=== PATIENT | male | born 1975 | race Caucasian/White ===

== ENCOUNTER 2017-02-06 08:12 | Emergency (ER) | payer OTHER ==
[~2017-02-06] VITALS: Ht 167.6 cm; Wt 58.1 kg
[~2017-02-06 08:12] MED LIST: BENZ2TAB58 PO; DIVA500T35 PO; OLAN5TAB2 PO; RISP2 PO; ZIPR20CA2 PO
[2017-02-06] MEDS ORDERED: HALO5I IM (08:41)
[2017-02-06] MEDS ORDERED: FLUP5 PO (08:41)
[2017-02-06 09:10] LABS: BASOPHILS % (AUTO) 0.5 % (0.0-2.0); HEMATOCRIT 43.4 % (41-53); HEMOGLOBIN 14.5 g/dL (13.5-17.5); LYMPHOCYTES % (AUTO) 25.5 % (22.0-44.0); MEAN CORPUSCULAR HEMOGLOBIN 30.2 pg (26.0-34.0); MEAN CORPUSCULAR HGB CONC 33.5 G/dL (31.0-37.0); MEAN CORPUSCULAR VOLUME 90 fL (80-100); MONOCYTES # (AUTO) 0.4 K/uL (0.1-1.0); MONOCYTES % (AUTO) 10.8 % (2.0-9.0); NEUTROPHILS # (AUTO) 2.4 K/uL (1.8-7.7); NEUTROPHILS % (AUTO) 62.2 % (40.0-70.0); PLATELET COUNT (AUTO) 201 K/uL (150-450); RED CELL DISTRIBUTION WIDTH 13.9 % (11.5-14.5); WHITE BLOOD COUNT (AUTO) 3.9 K/uL (4.5-11.0)
[2017-02-06] MEDS ORDERED: PERTUSS(ACELL),DIPH,TET VAC/PF 0.5 ML VIAL IM ONE (09:30)
[2017-02-06 09:34] LABS: ANION GAP 9 mmol/L (8-16); CALCIUM, TOTAL 8.2 mg/dL (8.8-10.5); CARBON DIOXIDE 29 mmol/L (22-29); CHLORIDE 100 mmol/L (98-107); CREATININE 0.77 mg/dL (0.60-1.30); GLOMERULAR FILTR. RATE CALC > 60 mL/min (>60); POTASSIUM 3.1 mmol/L (3.5-5.1); SODIUM SERUM 138 mmol/L (136-145); UREA NITROGEN, BLOOD 7 mg/dL (7-18)
[2017-02-06 09:40] LABS: ALANINE AMINOTRANSFERASE 19 U/L (12-78); ALBUMIN 3.4 g/dL (3.4-5.0); ASPARTATE AMINOTRANSFERASE 15 U/L (15-37); BILIRUBIN,TOTAL 0.1 mg/dL (0.1-1.0); TOTAL PROTEIN, SERUM 6.7 g/dL (6.4-8.2)
[2017-02-06 10:32] VITALS: BP 137/89
== END 2017-02-06 10:40 | disposition home or self-care (01) ==
LOC: EMS 08:14
DX: S01.112A Laceration without foreign body of left eyelid and periocular area, initial encounter (principal); F20.9 Schizophrenia, unspecified; F41.9 Anxiety disorder, unspecified; F17.210 Nicotine dependence, cigarettes, uncomplicated; X58.XXXA Exposure to other specified factors, initial encounter; Y93.89 Activity, other specified; Y92.89 Other specified places as the place of occurrence of the external cause; Y99.8 Other external cause status
CPT/HCPCS: 36415; 80053; 85025; 90471; 90715; 99285; G0480

== ENCOUNTER 2017-07-30 11:47 | Emergency (ER) | payer OTHER ==
[~2017-07-30] VITALS: Ht 167.6 cm; Wt 61.4 kg
[~2017-07-30 11:47] MED LIST changes: +FLUP5 PO; +HALO5I IM; -OLAN5TAB2 PO; -RISP2 PO; -ZIPR20CA2 PO
[2017-07-30 14:34] VITALS: BP 143/92
== END 2017-07-30 15:59 | disposition home or self-care (01) ==
LOC: EMS 11:48
DX: Z76.0 Encounter for issue of repeat prescription (principal); F20.9 Schizophrenia, unspecified; R25.1 Tremor, unspecified; F41.9 Anxiety disorder, unspecified; F17.210 Nicotine dependence, cigarettes, uncomplicated
CPT/HCPCS: 99283

== ENCOUNTER 2017-08-27 12:37 | Emergency (ER) | payer OTHER ==
[~2017-08-27] VITALS: Ht 167.6 cm; Wt 61.0 kg
[2017-08-27 13:22] VITALS: BP 146/99
[2017-08-27] MEDS ORDERED: DIVALPROEX SODIUM 250 MG DR TABLET PO ONE (14:00)
[2017-08-27] MEDS ORDERED: BENZTROPINE MESYLATE 2 MG TABLET PO ONE (14:00)
== END 2017-08-27 14:04 | disposition home or self-care (01) ==
LOC: EMS 12:37
DX: Z76.0 Encounter for issue of repeat prescription (principal); F17.210 Nicotine dependence, cigarettes, uncomplicated
CPT/HCPCS: 99283

== ENCOUNTER 2020-01-06 16:24 | Emergency (ER) | payer OTHER ==
[~2020-01-06] VITALS: Ht 167.6 cm; Wt 59.1 kg
[~2020-01-06 16:24] MED LIST changes: +DIVA-78 PO; -DIVA500T35 PO
[2020-01-06] MEDS ORDERED: HALOPERIDOL LACTATE 5 MG/ML VIAL IM ONE (16:30)
[2020-01-06] MEDS ORDERED: DiphenhydrAMINE HCL 50 MG/ML VIAL IM ONE (16:30)
[2020-01-06] MEDS ORDERED: LORazepam 2 MG/ML VIAL IM ONE (16:30)
[2020-01-06 17:55] LABS: BASOPHILS % (AUTO) 0.4 % (0.0-2.0); EOSINOPHILS % (AUTO) 0.7 % (1.0-6.0); HEMATOCRIT 32.1 % (41-53); HEMOGLOBIN 10.9 g/dL (13.5-17.5); MEAN CORPUSCULAR HEMOGLOBIN 31.7 pg (26.0-34.0); MEAN CORPUSCULAR HGB CONC 34.1 G/dL (31.0-37.0); MEAN CORPUSCULAR VOLUME 93 fL (80-100); MONOCYTES # (AUTO) 0.7 K/uL (0.1-1.0); MONOCYTES % (AUTO) 9.8 % (2.0-9.0); NEUTROPHILS # (AUTO) 5.1 K/uL (1.8-7.7); NEUTROPHILS % (AUTO) 74.1 % (40.0-70.0); PLATELET COUNT (AUTO) 248 K/uL (150-450); RED BLOOD CELL COUNT(AUTO) 3.45 MIL/uL (4.50-5.90); RED CELL DISTRIBUTION WIDTH 13.8 % (11.5-14.5)
[2020-01-06 18:09] LABS: ANION GAP 8 mmol/L (8-16); CALCIUM, TOTAL 8.6 mg/dL (8.8-10.5); CARBON DIOXIDE 27 mmol/L (22-29); CHLORIDE 101 mmol/L (98-107); GLOMERULAR FILTR. RATE CALC > 60 mL/min (>60); GLUCOSE,RANDOM 95 mg/dL (70-110); POTASSIUM 3.8 mmol/L (3.5-5.1); SODIUM SERUM 136 mmol/L (136-145); UREA NITROGEN, BLOOD 8 mg/dL (7-18)
[2020-01-06 18:14] LABS: ALANINE AMINOTRANSFERASE 20 U/L (12-78); ALBUMIN 3.3 g/dL (3.4-5.0); ALKALINE PHOSPHATASE 51 U/L (46-116); ASPARTATE AMINOTRANSFERASE 19 U/L (15-37); BILIRUBIN,TOTAL 0.2 mg/dL (0.1-1.0); TOTAL PROTEIN, SERUM 6.8 g/dL (6.4-8.2)
[2020-01-06 18:50] LABS: AMPHET/METH SCREEN,URINE POSITIVE (NEGATIVE); BARBITURATE SCREEN, URINE NEGATIVE (NEGATIVE); BENZODIAZEPINES SCREEN,URINE NEGATIVE (NEGATIVE); CANNABINOID SCREEN,URINE NEGATIVE (NEGATIVE); COCAINE SCREEN,URINE NEGATIVE (NEGATIVE); METHADONE SCREEN, URINE NEGATIVE (NEGATIVE); OPIATE SCREEN,URINE NEGATIVE (NEGATIVE)
[2020-01-06 18:55] LABS: PHENCYCLIDINE SCREEN,URINE NEGATIVE (NEGATIVE)
[2020-01-06 20:42] VITALS: BP 115/78
== END 2020-01-06 20:42 | disposition home or self-care (01) ==
LOC: EDBD → MERGE 16:24 → EMS 16:24
DX: S80.212A Abrasion, left knee, initial encounter (principal); S00.81XA Abrasion of other part of head, initial encounter; F20.0 Paranoid schizophrenia; F15.90 Other stimulant use, unspecified, uncomplicated; H91.3 Deaf nonspeaking, not elsewhere classified; X83.8XXA Intentional self-harm by other specified means, initial encounter; Y93.89 Activity, other specified; Y92.89 Other specified places as the place of occurrence of the external cause; Y99.8 Other external cause status
CPT/HCPCS: 36415; 80053; 80307; 85025; 96372; 99285; G0480; J1200; J1630; J2060

== ENCOUNTER 2020-03-30 18:51 | Inpatient (IN) | payer MEDICAID, OTHER ==
[~2020-03-30] VITALS: Ht 172.7 cm; Wt 57.2 kg
[~2020-03-30 18:51] MED LIST changes: +DIVA-112 PO; -DIVA-78 PO
[2020-03-30 23:17] LABS: ANION GAP 5 mmol/L (8-16); CALCIUM, TOTAL 8.9 mg/dL (8.8-10.5); CARBON DIOXIDE 32 mmol/L (22-29); CHLORIDE 101 mmol/L (98-107); CREATININE 0.78 mg/dL (0.60-1.30); GLOMERULAR FILTR. RATE CALC > 60 mL/min (>60); GLUCOSE,RANDOM 90 mg/dL (70-110); POTASSIUM 4.1 mmol/L (3.5-5.1); SODIUM SERUM 138 mmol/L (136-145); UREA NITROGEN, BLOOD 8 mg/dL (7-18)
[2020-03-30 23:21] LABS: BASOPHILS % (AUTO) 0.5 % (0.0-2.0); EOSINOPHILS % (AUTO) 5.2 % (1.0-6.0); HEMATOCRIT 37.1 % (41-53); HEMOGLOBIN 12.6 g/dL (13.5-17.5); MEAN CORPUSCULAR HEMOGLOBIN 31.6 pg (26.0-34.0); MEAN CORPUSCULAR VOLUME 93 fL (80-100); MONOCYTES # (AUTO) 0.6 K/uL (0.1-1.0); MONOCYTES % (AUTO) 10.6 % (2.0-9.0); NEUTROPHILS # (AUTO) 2.6 K/uL (1.8-7.7); NEUTROPHILS % (AUTO) 47.7 % (40.0-70.0); PLATELET COUNT (AUTO) 287 K/uL (150-450); RED BLOOD CELL COUNT(AUTO) 3.99 MIL/uL (4.50-5.90); RED CELL DISTRIBUTION WIDTH 13.4 % (11.5-14.5)
[2020-03-30 23:41] LABS: ALANINE AMINOTRANSFERASE 17 U/L (12-78); ALBUMIN 3.8 g/dL (3.4-5.0); ALKALINE PHOSPHATASE 65 U/L (46-116); ASPARTATE AMINOTRANSFERASE 13 U/L (15-37); BILIRUBIN,TOTAL 0.2 mg/dL (0.1-1.0); TOTAL PROTEIN, SERUM 7.4 g/dL (6.4-8.2)
[2020-03-30 23:51] LABS: AMPHET/METH SCREEN,URINE POSITIVE (NEGATIVE); BARBITURATE SCREEN, URINE NEGATIVE (NEGATIVE); BENZODIAZEPINES SCREEN,URINE NEGATIVE (NEGATIVE); CANNABINOID SCREEN,URINE NEGATIVE (NEGATIVE); COCAINE SCREEN,URINE NEGATIVE (NEGATIVE); METHADONE SCREEN, URINE NEGATIVE (NEGATIVE); OPIATE SCREEN,URINE NEGATIVE (NEGATIVE)
[2020-03-30 23:53] LABS: PHENCYCLIDINE SCREEN,URINE NEGATIVE (NEGATIVE)
[2020-03-31] VITALS (8 sets, daily range): BP systolic 116–141; BP diastolic 68–85
[2020-03-31] MEDS ORDERED: ZOLPIDEM TARTRATE 10 MG TABLET PO PRN (04:15)
[2020-03-31] MEDS ORDERED: LORazepam 2 MG TABLET PO PRN (04:15)
[2020-03-31] MEDS ORDERED: OLANZapine 5 MG RAPDIS TABLET PO PRN (04:15)
[2020-03-31] MEDS ORDERED: TUBERCULIN, PURIFIED PROTEIN DERIVATIVE 5 TU/0.1 ML SYRINGE ID ONE (18:45)
[2020-03-31] MEDS ORDERED: MAG HYDROX/AL HYDROX/SIMETH ES 30 ML SUSPENSION UDCUP PO PRN (18:45)
[2020-03-31] MEDS ORDERED: PALIPERIDONE PALMITATE 234 MG/1.5 ML SYRINGE IM ONE (18:45)
[2020-03-31] MEDS ORDERED: HydrOXYzine PAMOATE 50 MG CAPSULE PO PRN (18:45)
[2020-03-31] MEDS ORDERED: PROMETHAZINE HCL 25 MG TABLET PO PRN (18:45)
[2020-03-31] MEDS ORDERED: MAGNESIUM HYDROXIDE SUSPENSION 30 ML UDCUP PO PRN (18:45)
[2020-03-31] MEDS ORDERED: LOPERAMIDE HCL 2 MG CAPSULE PO PRN (18:45)
[2020-03-31] MEDS ORDERED: GuaiFENesin/D-METHORPHAN [SUGAR-FREE] 200-20MG/10 ML SYRUP UDCUP PO PRN (18:45)
[2020-03-31] MEDS ORDERED: PALIPERIDONE 1.5 MG ER TABLET PO PRN (18:45)
[2020-03-31] MEDS ORDERED: CYANOCOBALAMIN 1,000 MCG/ML VIAL IM ONE (18:45)
[2020-03-31] MEDS: DIVALPROEX SODIUM 500 MG DR TABLET PO SCH (20:15)
[2020-03-31] MEDS ORDERED: PALIPERIDONE 3 MG ER TABLET PO SCH (21:00)
[2020-04-01] VITALS (7 sets, daily range): BP systolic 102–119; BP diastolic 66–76
[2020-04-01 08:09] LABS: CHOL/HDL RATIO 5.2 (4.2-7.3); FREE T4 (FREE THYROXINE) 1.1 ng/dL (0.76-1.46); THYROID STIMULATING HORMONE 0.81 uIU/mL (0.36-3.74)
[2020-04-01 08:38] LABS: HEMOGLOBIN A1C 5.5 % (3.8-5.6)
[2020-04-01] MEDS: THIAMINE 100 MG TABLET PO SCH ×2 (09:47→16:38)
[2020-04-01] MEDS: FOLIC ACID 1 MG TABLET PO SCH (09:47)
[2020-04-01] MEDS: NALTREXONE HCL 50 MG TABLET PO SCH (09:47)
[2020-04-01] MEDS: MULTIVITAMINS WITH MINERALS, THERAPEUTIC TABLET PO SCH (09:47)
[2020-04-01] MEDS ORDERED: PALI117D IM (15:37)
[2020-04-01] MEDS ORDERED: PALI156D IM (15:37)
[2020-04-01] MEDS ORDERED: DIVA-112 PO (15:37)
[2020-04-01] MEDS ORDERED: NALT50TA PO (15:37)
[2020-04-01] MEDS: DIVALPROEX SODIUM 500 MG DR TABLET PO SCH (20:19)
[2020-04-02] MEDS: THIAMINE 100 MG TABLET PO SCH ×2 (08:24→16:31)
[2020-04-02] MEDS: NALTREXONE HCL 50 MG TABLET PO SCH (08:24)
[2020-04-02] MEDS: FOLIC ACID 1 MG TABLET PO SCH (08:24)
[2020-04-02] MEDS: MULTIVITAMINS WITH MINERALS, THERAPEUTIC TABLET PO SCH (08:24)
[2020-04-02] MEDS ORDERED: THIA100T80 PO (08:41)
[2020-04-02] MEDS ORDERED: MULT-1239 PO (08:41)
[2020-04-02] MEDS ORDERED: FOLI0.4T92 PO (08:41)
[2020-04-02 09:15] VITALS: BP 113/85
[2020-04-02 09:24] VITALS: BP 113/85
[2020-04-02 16:00] VITALS: BP 110/71
[2020-04-02 17:00] VITALS: BP 110/71
[2020-04-02] MEDS: DIVALPROEX SODIUM 500 MG DR TABLET PO SCH (20:26)
[2020-04-03 07:08] VITALS: BP 102/74
[2020-04-03 08:44] VITALS: BP 122/69
[2020-04-03 08:50] VITALS: BP 122/69
[2020-04-03] MEDS: NALTREXONE HCL 50 MG TABLET PO SCH (10:51)
[2020-04-03] MEDS: MULTIVITAMINS WITH MINERALS, THERAPEUTIC TABLET PO SCH (10:51)
[2020-04-03] MEDS: FOLIC ACID 1 MG TABLET PO SCH (10:51)
[2020-04-03] MEDS: THIAMINE 100 MG TABLET PO SCH ×2 (10:51→17:10)
[2020-04-03 16:15] VITALS: BP 107/57
[2020-04-03 16:17] VITALS: BP 107/57
[2020-04-03] MEDS: DIVALPROEX SODIUM 500 MG DR TABLET PO SCH (20:45)
[2020-04-04 08:00] VITALS: BP 114/89
[2020-04-04 08:41] VITALS: BP 114/89
[2020-04-04] MEDS ORDERED: PALIPERIDONE PALMITATE 156 MG/ML SYRINGE IM ONE (09:00)
[2020-04-04] MEDS: THIAMINE 100 MG TABLET PO SCH ×2 (11:01→16:01)
[2020-04-04] MEDS: NALTREXONE HCL 50 MG TABLET PO SCH (11:01)
[2020-04-04] MEDS: FOLIC ACID 1 MG TABLET PO SCH (11:01)
[2020-04-04] MEDS: MULTIVITAMINS WITH MINERALS, THERAPEUTIC TABLET PO SCH (11:01)
[2020-04-04 16:10] VITALS: BP 119/84
[2020-04-04 16:16] VITALS: BP 119/84
[2020-04-04] MEDS: DIVALPROEX SODIUM 500 MG DR TABLET PO SCH (20:23)
[2020-04-05] VITALS (7 sets, daily range): BP systolic 107–134; BP diastolic 64–72
[2020-04-05] MEDS: MULTIVITAMINS WITH MINERALS, THERAPEUTIC TABLET PO SCH (09:06)
[2020-04-05] MEDS: NALTREXONE HCL 50 MG TABLET PO SCH (09:06)
[2020-04-05] MEDS: THIAMINE 100 MG TABLET PO SCH ×2 (09:06→16:14)
[2020-04-05] MEDS: FOLIC ACID 1 MG TABLET PO SCH (09:06)
[2020-04-05] MEDS: DIVALPROEX SODIUM 500 MG DR TABLET PO SCH (20:19)
[2020-04-06 03:08] VITALS: BP 126/82
[2020-04-06 08:00] VITALS: BP 126/76
[2020-04-06] MEDS: NALTREXONE HCL 50 MG TABLET PO SCH (08:38)
[2020-04-06] MEDS: MULTIVITAMINS WITH MINERALS, THERAPEUTIC TABLET PO SCH (08:38)
[2020-04-06] MEDS: FOLIC ACID 1 MG TABLET PO SCH (08:39)
[2020-04-06] MEDS: THIAMINE 100 MG TABLET PO SCH ×2 (08:39→16:42)
[2020-04-06 09:16] VITALS: BP 126/76
[2020-04-06 17:03] VITALS: BP 130/79
[2020-04-06 17:07] VITALS: BP 130/79
[2020-04-06] MEDS ORDERED: OLANZapine 5 MG RAPDIS TABLET PO PRN (19:15)
[2020-04-06] MEDS: DIVALPROEX SODIUM 500 MG DR TABLET PO SCH (20:27)
[2020-04-06] MEDS ORDERED: OLANZapine 5 MG RAPDIS TABLET PO SCH (21:00)
[2020-04-07 08:00] VITALS: BP 123/87
[2020-04-07] MEDS: FOLIC ACID 1 MG TABLET PO SCH (08:19)
[2020-04-07] MEDS: MULTIVITAMINS WITH MINERALS, THERAPEUTIC TABLET PO SCH (08:19)
[2020-04-07] MEDS: NALTREXONE HCL 50 MG TABLET PO SCH (08:19)
[2020-04-07] MEDS: THIAMINE 100 MG TABLET PO SCH ×2 (08:19→16:08)
[2020-04-07 16:00] VITALS: BP 152/73
[2020-04-07] MEDS: OLANZapine 10 MG RAPDIS TABLET PO SCH (20:49)
[2020-04-07] MEDS: DIVALPROEX SODIUM 500 MG DR TABLET PO SCH (20:49)
[2020-04-08 08:00] VITALS: BP 132/79
[2020-04-08] MEDS: FOLIC ACID 1 MG TABLET PO SCH (09:13)
[2020-04-08] MEDS: MULTIVITAMINS WITH MINERALS, THERAPEUTIC TABLET PO SCH (09:13)
[2020-04-08] MEDS: THIAMINE 100 MG TABLET PO SCH ×2 (09:13→16:01)
[2020-04-08] MEDS: NALTREXONE HCL 50 MG TABLET PO SCH (09:14)
[2020-04-08 16:00] VITALS: BP 125/79
[2020-04-08 16:45] VITALS: BP 130/84
[2020-04-08] MEDS: ACETAMINOPHEN 325 MG TABLET PO PRN (16:48)
[2020-04-08] MEDS: OLANZapine 10 MG RAPDIS TABLET PO SCH (20:15)
[2020-04-08] MEDS: DIVALPROEX SODIUM 500 MG DR TABLET PO SCH (20:15)
[2020-04-09 08:00] VITALS: BP 137/73
[2020-04-09] MEDS: THIAMINE 100 MG TABLET PO SCH ×2 (08:11→16:04)
[2020-04-09] MEDS: MULTIVITAMINS WITH MINERALS, THERAPEUTIC TABLET PO SCH (08:11)
[2020-04-09] MEDS: FOLIC ACID 1 MG TABLET PO SCH (08:11)
[2020-04-09] MEDS: NALTREXONE HCL 50 MG TABLET PO SCH (08:12)
[2020-04-09 16:24] VITALS: BP 145/90
[2020-04-09] MEDS: OLANZapine 10 MG RAPDIS TABLET PO SCH (20:16)
[2020-04-09] MEDS: DIVALPROEX SODIUM 500 MG DR TABLET PO SCH (20:16)
[2020-04-10] MEDS: FOLIC ACID 1 MG TABLET PO SCH (08:33)
[2020-04-10] MEDS: THIAMINE 100 MG TABLET PO SCH ×2 (08:33→16:37)
[2020-04-10] MEDS: NALTREXONE HCL 50 MG TABLET PO SCH (08:33)
[2020-04-10] MEDS: MULTIVITAMINS WITH MINERALS, THERAPEUTIC TABLET PO SCH (08:33)
[2020-04-10 09:36] VITALS: BP 126/84
[2020-04-10 16:24] VITALS: BP 122/98
[2020-04-10 17:09] VITALS: BP 124/86
[2020-04-10] MEDS: ACETAMINOPHEN 325 MG TABLET PO PRN (17:09)
[2020-04-10] MEDS: OLANZapine 10 MG RAPDIS TABLET PO SCH (20:24)
[2020-04-10] MEDS: DIVALPROEX SODIUM 500 MG DR TABLET PO SCH (20:24)
[2020-04-11 08:00] VITALS: BP 127/80
[2020-04-11] MEDS: NALTREXONE HCL 50 MG TABLET PO SCH (08:53)
[2020-04-11] MEDS: MULTIVITAMINS WITH MINERALS, THERAPEUTIC TABLET PO SCH (08:53)
[2020-04-11 18:38] VITALS: BP 114/82
[2020-04-11] MEDS: OLANZapine 10 MG RAPDIS TABLET PO SCH (20:05)
[2020-04-11] MEDS: DIVALPROEX SODIUM 500 MG DR TABLET PO SCH (20:05)
[2020-04-12] MEDS: NALTREXONE HCL 50 MG TABLET PO SCH (08:09)
[2020-04-12] MEDS: MULTIVITAMINS WITH MINERALS, THERAPEUTIC TABLET PO SCH (08:09)
[2020-04-12 08:36] VITALS: BP 126/71
[2020-04-12 09:05] VITALS: BP 126/71
[2020-04-12 16:00] VITALS: BP 112/78
[2020-04-12] MEDS: DIVALPROEX SODIUM 500 MG DR TABLET PO SCH (20:04)
[2020-04-12] MEDS: OLANZapine 10 MG RAPDIS TABLET PO SCH (20:04)
[2020-04-13 08:00] VITALS: BP 120/75
[2020-04-13] MEDS: NALTREXONE HCL 50 MG TABLET PO SCH (10:47)
[2020-04-13] MEDS: MULTIVITAMINS WITH MINERALS, THERAPEUTIC TABLET PO SCH (10:47)
[2020-04-13 17:10] VITALS: BP 131/84
[2020-04-13] MEDS: NICOTINE 14 MG/24 HOUR PATCH TD SCH (19:36)
[2020-04-13] MEDS: OLANZapine 10 MG RAPDIS TABLET PO SCH (20:13)
[2020-04-13] MEDS: DIVALPROEX SODIUM 500 MG DR TABLET PO SCH (20:14)
[2020-04-14 00:57] VITALS: BP 117/75
[2020-04-14 08:32] VITALS: BP 146/88
[2020-04-14] MEDS: NICOTINE 14 MG/24 HOUR PATCH TD SCH (09:21)
[2020-04-14] MEDS: MULTIVITAMINS WITH MINERALS, THERAPEUTIC TABLET PO SCH (09:22)
[2020-04-14] MEDS: NALTREXONE HCL 50 MG TABLET PO SCH (09:22)
[2020-04-14 16:00] VITALS: BP 116/77
[2020-04-14] MEDS ORDERED: OLAN10TA22 PO (17:24)
[2020-04-14] MEDS: DIVALPROEX SODIUM 500 MG DR TABLET PO SCH (20:01)
[2020-04-14] MEDS: OLANZapine 10 MG RAPDIS TABLET PO SCH (20:01)
[2020-04-15] MEDS: MULTIVITAMINS WITH MINERALS, THERAPEUTIC TABLET PO SCH (10:55)
[2020-04-15] MEDS: NALTREXONE HCL 50 MG TABLET PO SCH (10:55)
[2020-04-15] MEDS: NICOTINE 14 MG/24 HOUR PATCH TD SCH (10:56)
== END 2020-04-15 15:40 | disposition home or self-care (01) | DRG 885 ==
LOC: EMS 18:51 → 3EI 03-31 03:00 → EMS 03-31 03:30
PROVIDERS: ADMIT Psychiatry & Neurology Psychiatry; ATTEND Psychiatry & Neurology Psychiatry
DX: F25.1 Schizoaffective disorder, depressive type (principal); F15.10 Other stimulant abuse, uncomplicated; D64.9 Anemia, unspecified; F17.210 Nicotine dependence, cigarettes, uncomplicated; H91.90 Unspecified hearing loss, unspecified ear; Z91.14 Patient's other noncompliance with medication regimen; Z91.19 Patient's noncompliance with other medical treatment and regimen; Z20.828 Contact with and (suspected) exposure to other viral communicable diseases
CPT/HCPCS: 80173; 83036; 84439; 84443; 86592; G0480; J3420

== ENCOUNTER 2021-07-26 13:16 | Emergency (ER) | payer MEDICAID, OTHER ==
[~2021-07-26] VITALS: Ht 172.7 cm; Wt 57.0 kg
[~2021-07-26 13:16] MED LIST changes: -BENZ2TAB58 PO; -FLUP5 PO; +FOLI0.4T6 PO; -HALO5I IM; +MULT-1239 PO; +NALT50TA PO; +OLAN10TA22 PO; +THIA100T80 PO
[2021-07-26] MEDS ORDERED: BENZ1TAB10 PO (13:27)
[2021-07-26] MEDS ORDERED: ALBUTEROL SULFATE HFA 90 MCG/PUFF 8 GM INHALER IH ONE (13:45)
[2021-07-26] MEDS ORDERED: ACETAMINOPHEN 500 MG TABLET PO ONE (13:45)
[2021-07-26] MEDS ORDERED: GuaiFENesin/D-METHORPHAN [SUGAR-FREE] 200-20MG/10 ML SYRUP UDCUP PO ONE (13:45)
[2021-07-26 13:47] VITALS: BP 104/52
[2021-07-26 13:59] LABS: COVID AG,FIA SOURCE NASOPHARYNGEAL
== END 2021-07-26 14:32 | disposition home or self-care (01) ==
LOC: EMS 13:16
DX: J40 Bronchitis, not specified as acute or chronic (principal); J06.9 Acute upper respiratory infection, unspecified; F20.9 Schizophrenia, unspecified; Z20.822 Contact with and (suspected) exposure to COVID-19; Z59.00 Homelessness unspecified
CPT/HCPCS: 94640; 99283; J3535

== ENCOUNTER 2022-07-18 14:24 | Emergency (ER) | payer OTHER ==
[~2022-07-18] VITALS: Ht 167.6 cm; Wt 59.1 kg
[~2022-07-18 14:24] MED LIST changes: +BENZ1TAB96 PO
[2022-07-18] MEDS ORDERED: DIVA-112 PO (15:42)
[2022-07-18] MEDS ORDERED: BENZ1TAB96 PO (15:42)
[2022-07-18 15:57] VITALS: BP 126/72
== END 2022-07-18 15:58 | disposition home or self-care (01) ==
LOC: EMS 14:27
DX: F25.9 Schizoaffective disorder, unspecified (principal); Z59.00 Homelessness unspecified
CPT/HCPCS: 99281; Z7502